=== PATIENT | male | born 1940 | race Caucasian/White ===

== ENCOUNTER 2017-04-08 07:40 | Emergency (ER) | payer MEDICARE, BC ==
[~2017-04-08 07:40] MED LIST: ARTANE2 MG PO; BUSPAR5 MG PO; DEPAKOTE500 MG PO; DESYREL DPS100 MG PO; IMODIUM DPS2 MG PO; MAALOX DPS30 ML PO; METAMUCIL SF P3.4 GM PO; MYRBETRIQ25 MG PO; POLYSPORIN OINT15 GM TP; QUESTRAN DPS4 GM PO; SINEMET 25/1001 TAB PO; SINEMET CR 25-11 TAB PO; SYNTHROID DPS0.1 MG PO; TYLENOL DPS325 MG PO; VITAMIN D35000 UNI1 PO
--- NOTE | 2017-04-10 13:02 | ER ---
ADMIT: 04/08/2017 RM/LOC: ER [facility] MR#: [id number] [address] [place] [address] Emergency Room Report SEX: M AGE: 76 : 1940 DATE: 04/08/2017 The patient is a 76-year-old male with a history of dementia, Parkinson disease, normal-pressure hydrocephalus status post [employer] shunt placement, revision and removal 5 days ago came to the ER from nursing care facility because he was found on the side of the bed between the bed and wall. Allegedly, patient fell from the bed last night for unknown time, loss of consciousness unknown. At the moment, the patient is allegedly at the baseline. PHYSICAL EXAMINATION: VITAL SIGNS: The patient has stable vitals. GENERAL: No distress. Lying in bed, answering the question, awake, but oriented to place, but not time or place or situation. There are no obvious signs of trauma in head and neck or the other parts of the body. In the right occipital area there is an incision of the shunt, which is clean and dry. HEENT: Pupils are 3 mm, reactive to light bilaterally. Normal extraocular movement. NECK: Soft. CHEST: Clear bilaterally without any crackles. HEART: Normal S1, S2 without any murmurs. ABDOMEN: Soft. Pelvis stable. EXTREMITIES: There are no signs of trauma in extremities. The patient had cogwheel rigidity in upper extremities and also has fine resting tremor in upper extremities. The patient also had some pill rolling movement in the fingers. Other than that, motor in upper extremities grossly normal. The patient moves lower extremities, but really does not follow the command for complete motor examination. The patient has been bed bound for few months. His [id number] at bedside. CT of the brain did not show any acute changes except for stable hydrocephalus. Chest x-ray was negative for any acute changes or any ADMIT: 04/08/2017 RM/LOC: ER [facility] MR#: [id number] [address] [place] [address] Emergency Room Report SEX: M AGE: 76 : 1940 infiltrations. EKG was normal sinus rhythm with a rate of 92. Lab works; CMP and CBC were noncontributory and negative. CK level was 209. The rest of the lab works are also negative and noncontributory. The patient is stable at the baseline at the moment. DIAGNOSES: 1. Fall. 2. History of dementia, Parkinson, and normal-pressure hydrocephalus. The patient was discharged to nursing care facility. The patient has appointment with Dr. Mitchell, Neurosurgery this morning, to be followed up by Neurosurgery too. Domingo Amaya MD/ juliol JOB #: [id number] CC: Domingo Amaya MD, Attending Physician Alpesh Fuller MD, Family Physician
== END 2017-04-08 10:25 | disposition home or self-care (01) ==
LOC: ER 07:40
DX: G91.2 (Idiopathic) normal pressure hydrocephalus (principal); G20 Parkinson's disease; E03.9 Hypothyroidism, unspecified; W06.XXXA Fall from bed, initial encounter